=== PATIENT | female | born 1955 | race Hispanic/Latino ===

== ENCOUNTER 2020-11-10 05:30 | Observation (INO) | payer OTHER ==
[2020-11-05 12:00] VITALS: BP 134/59
[2020-11-05 12:12] LABS: BASOPHILS % (AUTO) 0.3 % (0.0-5.0); EOSINOPHILS % (AUTO) 1.2 % (0.0-8.0); HEMATOCRIT 40.5 % (36-48); LYMPHOCYTES % (AUTO) 36.4 % (21.0-51.0); MEAN CORPUSCULAR HEMOGLOBIN 29.2 pg (27.0-33.0); MEAN CORPUSCULAR HGB CONC 32.8 g/dL (32.0-36.0); MONOCYTES % (AUTO) 7.4 % (3.0-13.0); NEUTROPHILS % (AUTO) 54.2 % (40.0-77.0); PLATELET COUNT (AUTO) 227 K/uL (130-400); RED BLOOD CELL COUNT(AUTO) 4.55 MIL/uL (4.00-5.50); RED CELL DISTRIBUTION WIDTH 13.2 % (11.0-15.5); WHITE BLOOD COUNT (AUTO) 6.6 K/uL (4.8-10.8)
[~2020-11-10] VITALS: Ht 154.9 cm; Wt 72.8 kg
[2020-11-10] VITALS (24 sets, daily range): BP systolic 97–145; BP diastolic 39–64
[~2020-11-10 05:30] MED LIST: FISH1CAP20 PO; HYDR12.54 PO; LOSA100T58 PO; MONT10TA21 PO; OMEP40CA21 PO; SUMA50TA PO; TRAM50TA4 PO; vitamin d PO
[2020-11-10] MEDS ORDERED: CALCIUM PO (05:59)
[2020-11-10] MEDS ORDERED: LACTATED RINGERS 1000ML 1,000 ML IV ONE (06:18)
[2020-11-10] MEDS: CEFAZOLIN SODIUM 1 GM VIAL ONE ×2 (06:21→07:00)
[2020-11-10] MEDS ORDERED: LIDOCAINE PF 100MG/5ML (2%) SYRINGE 5ML ONE (06:45)
[2020-11-10] MEDS ORDERED: MIDAZOLAM HCL 1 MG/ML 2ML VIAL ONE (06:46)
[2020-11-10] MEDS ORDERED: ROCURONIUM 10MG/1ML SYR 10 MG/ML ML ONE (06:46)
[2020-11-10] MEDS ORDERED: ONDANSETRON 4MG INJ ONE (06:46)
[2020-11-10] MEDS ORDERED: PROPOFOL 10 MG/ML 20ML VIAL IV ONE ×2 (06:46→08:26)
[2020-11-10] MEDS ORDERED: FENTANYL CITRATE PF 50 MCG/1 ML 5ML AMP IV ONE ×2 (06:47)
[2020-11-10] MEDS ORDERED: EPHEDRINE SULFATE 50 MG/ML AMPULE ONE (07:15)
[2020-11-10] MEDS ORDERED: GLYCOPYRROLATE 1 MG/5 ML SYRINGE ONE ×2 (07:47→09:04)
[2020-11-10] MEDS ORDERED: NEOSTIGMINE 5MG/5ML SYR IV ONE (07:47)
[2020-11-10] MEDS ORDERED: CEFAZOLIN SODIUM 1 GM VIAL IVP ONE (08:00)
[2020-11-10] MEDS ORDERED: LACTATED RINGERS 1000ML 1,000 ML IV SCH (08:00)
[2020-11-10] MEDS ORDERED: FENTANYL CITRATE PF 50 MCG/1 ML 2ML VIAL ONE (08:06)
[2020-11-10] MEDS ORDERED: MEPERIDINE-PF 25 MG/ML SYG ONE ×2 (08:50→09:07)
[2020-11-10] MEDS ORDERED: ONDANSETRON 4MG INJ IVP PRN (10:00)
[2020-11-10] MEDS ORDERED: PROMETHAZINE HCL 25 MG/ML 1ML AMPULE IM PRN (10:00)
[2020-11-10] MEDS ORDERED: IBUPROFEN 600 MG TABLET PO PRN (10:00)
[2020-11-10] MEDS ORDERED: BISACODYL 10 MG SUPP.RECT RC PRN (10:00)
[2020-11-10] MEDS ORDERED: ACETAMINOPHEN WITH CODEINE 1 TAB TAB PO PRN (10:00)
[2020-11-10] MEDS: PROMETHAZINE HCL 25 MG/ML 1ML AMPULE IM PRN ×3 (10:40→23:35)
[2020-11-10] MEDS: MEPERIDINE-PF 75 MG/ML SYG IM PRN ×3 (10:45→23:36)
[2020-11-10] MEDS: DEXTROSE 5 %-0.45 % NACL 1,000 ML IV PRN ×2 (10:45→23:23)
[2020-11-11 03:15] VITALS: BP 115/56
[2020-11-11] MEDS ORDERED: HYDROCODONE/ACETAMINOPHEN 5/325 MG TAB PO PRN ×2 (04:30→09:00)
[2020-11-11] MEDS: DEXTROSE 5 %-0.45 % NACL 1,000 ML IV PRN (06:42)
[2020-11-11 06:46] LABS: HEMATOCRIT 35.2 % (36-48); MEAN CORPUSCULAR HEMOGLOBIN 29.5 pg (27.0-33.0); MEAN CORPUSCULAR HGB CONC 32.7 g/dL (32.0-36.0); MEAN CORPUSCULAR VOLUME 90.3 fL (79-99); RED BLOOD CELL COUNT(AUTO) 3.9 MIL/uL (4.00-5.50); RED CELL DISTRIBUTION WIDTH 13.4 % (11.0-15.5); WHITE BLOOD COUNT (AUTO) 11.7 K/uL (4.8-10.8)
[2020-11-11] MEDS: IBUPROFEN 800 MG TAB PO PRN ×3 (06:53→22:20)
[2020-11-11] MEDS ORDERED: IBUPROFEN 800 MG TAB PO PRN (09:00)
[2020-11-11] MEDS ORDERED: NITROFURANTOIN MONOHYD/M-CRYST 100 MG CAPSULE PO ONE (09:16)
[2020-11-11] MEDS: DOCUSATE SODIUM 100 MG CAP PO PRN ×2 (09:29→22:15)
[2020-11-11] MEDS: NITROFURANTOIN MONOHYD/M-CRYST 100 MG CAPSULE PO SCH ×2 (09:29→22:15)
[2020-11-11] MEDS: SIMETHICONE 80 MG TAB.CHEW PO PRN ×2 (09:29→22:15)
[2020-11-11] MEDS: ACETAMINOPHEN WITH CODEINE 1 TAB TAB PO PRN ×2 (09:36→17:56)
[2020-11-11 11:30] VITALS: BP 130/72
[2020-11-11 16:00] VITALS: BP 130/65
[2020-11-11 19:16] VITALS: BP 150/67
[2020-11-11 23:11] VITALS: BP 121/57
[2020-11-12 03:10] VITALS: BP 115/60
[2020-11-12 07:22] VITALS: BP 148/64
[2020-11-12] MEDS: IBUPROFEN 800 MG TAB PO PRN (07:32)
[2020-11-12] MEDS: DOCUSATE SODIUM 100 MG CAP PO PRN (09:24)
[2020-11-12] MEDS: SIMETHICONE 80 MG TAB.CHEW PO PRN (09:24)
[2020-11-12] MEDS: NITROFURANTOIN MONOHYD/M-CRYST 100 MG CAPSULE PO SCH (09:24)
[2020-11-12] MEDS ORDERED: ACET1TAB25 PO (11:03)
[2020-11-12] MEDS ORDERED: MACR100 PO (11:03)
[2020-11-12 11:18] VITALS: BP 140/65
[2020-11-12] MEDS: ACETAMINOPHEN WITH CODEINE 1 TAB TAB PO PRN (11:56)
== END 2020-11-12 13:10 | disposition home or self-care (01) ==
LOC: DAH 05:30 → DAHIP 09:44 → WSH 09:45 → DAHIP 10:32 → UNDOADMOB 10:32 → DAH 12:19
PROVIDERS: ADMIT Obstetrics & Gynecology; ATTEND Obstetrics & Gynecology
DX: N81.2 Incomplete uterovaginal prolapse (principal); Z20.822 Contact with and (suspected) exposure to COVID-19; N39.3 Stress incontinence (female) (male); I10 Essential (primary) hypertension; K46.9 Unspecified abdominal hernia without obstruction or gangrene; N81.4 Uterovaginal prolapse, unspecified; G43.909 Migraine, unspecified, not intractable, without status migrainosus; F32.9 Major depressive disorder, single episode, unspecified; Z79.899 Other long term (current) drug therapy; Z98.890 Other specified postprocedural states
CPT/HCPCS: 36415 ×3; 57240; 58263; 85025; 85027; 86850 ×2; 86900 ×2; 86901 ×2; 87635; 88305; 88307; 88311; 96360; 96361 ×3; 96372; A4215; A4221; A4222; A4223; A4351; A4606; A4663; A4930; C1771; C9803; G0378 ×51; J0690; J2001; J2175 ×5; J2250; J2405; J2550 ×3; J2704 ×2; J2710; J3010 ×2; J3490 ×3; J7120 ×2